=== PATIENT | male | born 1990 | race Caucasian/White ===

== ENCOUNTER 2025-10-17 13:26 | Emergency (ER) | payer OTHER, BC, SELFPAY ==
[2025-10-17 13:27] VITALS: BP 165/97; PULSE 116; RESP 16; TEMP 36.2; O2SAT 98
[2025-10-17 13:42] VITALS: BMI 36.8
--- NOTE | 2025-10-17 13:52 | RAD_ITS ---
PROCEDURE: ANKLE MIN 3 VIEWS 10/17/2025 REASON FOR EXAM: INJURY/PAIN TECHNIQUE: Procedure Code: RADANK Modality: DX Procedure: ANKLE MIN 3 VIEWS Laterality: Left ankle COMPARISON: None FINDINGS: Bones: No fracture seen. Joints: Normal alignment. Mortise appears intact. No effusion. Soft tissues: Mild soft tissue swelling. Other: RAD/Ankle min 3 Views IMPRESSION: SOFT TISSUE SWELLING. NO FRACTURE IDENTIFIED. Reading Location: [place] [id number]
--- NOTE | 2025-10-17 14:24 | EDS_ITS ---
HPI History of Present Illness Chief Complaint: Lower Extremity Injury Detail of Chief Complaint: Injury left ankle Informant: patient Onset/Context/Timing Onset: Today and Hours Mechanism/Context: Blunt Injury (Twisting mechanism.) Location of pain/injuries: Left ankle Quality of Pain: Dull and Aching Location: Ankle Current Severity: Mild Maximum Severity: Moderate Worsened by: Movement and weightbearing Relieved by: Breast Associated Symptoms Associated Symptoms: Negative for Parasthesias, Weakness, Loss of function or Inability to ambulate (Difficulty only) Length of loss of consciousness: Patient is a 35-year-old male. He was getting out of his truck. He twiste Narrative Narrative: Patient is a 35-year-old male. He presents with a twisting mechanism injury to his left ankle. He complains of pain bilaterally. He has swelling over the lateral malleolus. He denies paresthesia, anesthesia medics. Nuys knee pain. He denies prior injury to the left ankle. Did sprain his right ankle when he was younger. He has no other complaints. Prior similar symptoms: Yes Recent Illness/Hospitalization: No PFSH PFSH Medical History no medical history Home Medications ?Medication ?Instructions ?Recorded ?Last Taken ?Type NK 10/17/25 Unknown History Allergy/AdvReac Type Severity Reaction Status Date / Time No Known Allergies Allergy Verified 10/17/25 13:29 Family History no significant family his Surgical History no surgical history Social History (Updated 10/17/25 @ 14:[address] Reza Sandoval MD) household members: spouse Smoking Status: Former smoker ROS ROS ED Musculoskeletal Musculoskeletal: Reports other Details: Per HPI narrative. ; Denies arthralgias or myalgias Integumentary Denies Abrasions or rash Neurologic Neurologic: Denies paresthesias or weakness Hematologic/Lymphatic Hematologic/Lymphatic: Denies easy bleeding or easy bruising EXAM Physical Exam Const Vital Signs: 10/17/25 13:27 Temperature 97.2 F L Temperature Source Temporal Pulse Rate 116 H Respiratory Rate 16 Blood Pressure 165/97 H Blood Pressure Mean 119 Pulse Ox 98 Positive well nourished and well developed General Appearance ED: well developed and NAD HEENT atraumatic Eyes PERRL and EOMs intact bilaterally Resp normal respiratory effort Cardio regular rhythm, S1 normal heart sound, S2 normal heart sound and no murmurs Extremity full ROM; Negative for normal to inspection Extremity Narrative: There is significant swelling over the lateral malleolus. There is pain ovation over the lateral malleolus posteriorly distal 3 to 4 cm. There is pain ovation over the anterior talofibular ligament and the calcaneofibular ligament. There is no pain ovation of the deltoid ligament. The Achilles tendon is functionally intact. There is no pain outpatient at the base of the fifth metatarsal. DP and PT pulse are palpable. Neuro oriented x3 and CN's II-XII intact bilaterally Sensorium / Orientation: alert Psych mental status grossly normal and thought process normal Skin no rashes or lesions noted, no wounds, skin turgor normal and no jaundice MDM MDM MDM Narrative Medical decision making narrative: Based on the Lanier ankle rule patient requires imaging to rule out fracture versus sprain. Radiography Chest X-Ray - ED: Read by ED Physician (Three-view x-ray of the ankle reveals soft tissue swelling lateral. There is no Insa fracture. There is no asymmetry of the mortise. The base of the fifth metatarsal reveals no fracture.) Diagnostic Testing: Clinical Impression(s) from Imaging Studies Ankle X-Ray 10/17/25 13:52 IMPRESSION: SOFT TISSUE SWELLING. NO FRACTURE IDENTIFIED. Reading Location: [facility]- Treatment and Re-Evaluation Narrative: Patient was treated as an ankle sprain. Treatment is NSAIDs, ice and appropriate exercises Discharge Plan Triage Chief Complaint: Lower Extremity Injury ED Provider: Reza Sandoval Dx/Rx/DC Orders Clinical Impression: Sprain of anterior talofibular ligament of left ankle, Elevated blood-pressure reading without diagnosis of hypertension, Tachycardia Instructions: ED Hypertension, To Be Confirmed, ED Ankle Sprain (Adult) Prescriptions: No Action NK Primary Care Provider: Care Physician,No Primary Referrals: Care Physician,No Primary [Primary Care Provider, Medical] [facility] [Non-Staff, Medical] - 1 Week if not improving Activity Restrictions/Additional Instructions: 1. Apply ice to your left ankle 6-8 times a day for the next 3 to 5 days. 2. Drawl the alphabet with your foot 4-6 times a day. 3. Take either 4 ibuprofen tablets every 8 hours or 2 Aleve tablets every 12 hours for next 3 to 5 days. 4. Recommend wearing a flat shoe. 5. Recommend not going up and down ladders and any steep inclines Print Language: Kiswahili Disposition Disposition: Home, Self Care
[2025-10-17 14:40] VITALS: BP 150/85; PULSE 95; RESP 18; TEMP 36.2; O2SAT 98
== END 2025-10-17 14:41 | disposition home or self-care (01) ==
LOC: ED 14:33
PROVIDERS: Emergency Provider Emergency Medicine; Visit Provider Emergency Medicine
DX: S93.492A Sprain of other ligament of left ankle, initial encounter (principal); X50.1XXA Overexertion from prolonged static or awkward postures, initial encounter; Y93.89 Activity, other specified; Y99.0 Civilian activity done for income or pay; R03.0 Elevated blood-pressure reading, without diagnosis of hypertension; R00.0 Tachycardia, unspecified; Z87.891 Personal history of nicotine dependence
CPT/HCPCS: 73610; 99282